=== PATIENT | male | born 1940 | race Caucasian/White ===

== ENCOUNTER 2018-03-24 10:31 | Emergency (ER) | payer MEDICARE ==
[~2018-03-24] VITALS: Ht 172.7 cm; Wt 77.3 kg
[~2018-03-24 10:31] MED LIST: ALTACE5 MG PO; ARICEPT10 MG PO; ASCORBIC ACID500 MG PO; ATIVAN0.5 MG PO; DEPAKENE250 MG PO; GEODON20 MG PO; KLONOPIN0.5 MG PO; MEGACE40 MG PO; MELATONIN 3 MG1 TAB PO; MULTIPLE VITAMI1 TA1 PO; NAMENDA10 MG PO; PRAVACHOL80 MG PO; TRAZODONE HCL50 MG PO; ZOLOFT50 MG PO; ZYPREXA2.5 MG PO
[2018-03-24 10:36] VITALS: Ht 172.7 cm; Wt 77.3 kg
[2018-03-24 12:18] LABS: BASOPHILS 0.4 % (0-2); EOSINOPHILS 1.1 % (0-7); HEMATOCRIT 38.1 % (42.0-54.0); HEMOGLOBIN 12.8 g/dL (13.5-17.5); IMMATURE GRANULOCYTES 0.5 % (0-5); LYMPHOCYTES 11.6 % (15-50); MCH 29.3 pg (26.0-34.0); MCHC 33.6 g/dL (31.0-37.0); MCV 87.2 fL (80.0-100.0); MEAN PLATELET VOLUME 10.2 fL (7.4-10.4); MONOCYTES 11.2 % (2-11); NEUTROPHILS 75.2 % (40-80); RBC 4.37 10x6/uL (4.20-6.10); RDW 14.9 % (11.5-14.5); WBC 7.6 10x3/uL (4.8-10.8)
[2018-03-24 12:20] LABS: PLATELET COUNT 185 10x3/uL (130-400)
[2018-03-24 12:32] LABS: ALBUMIN 3.3 g/dL (3.4-5.0); ANION GAP 12.5 mmol/L (8-16); BILIRUBIN - TOTAL 0.4 mg/dL (0.2-1.3); CALCIUM 8.4 mg/dL (8.5-10.1); CARBON DIOXIDE 24.1 mmol/L (21.0-32.0); CREATININE - SERUM 1.2 mg/dL (0.6-1.3); POTASSIUM - SERUM 5.6 mmol/L (3.5-5.1); PROTEIN - SERUM 6.8 g/dL (6.4-8.2)
[2018-03-24 13:42] VITALS: BP 148/078
[2018-05-24 15:31] VITALS: Ht 172.7 cm; Wt 77.3 kg
== END 2018-03-24 13:42 | disposition home or self-care (01) ==
LOC: D.ER 10:31
PROVIDERS: Family Medicine
DX: S00.03XA Contusion of scalp, initial encounter (principal); W05.0XXA Fall from non-moving wheelchair, initial encounter; Y93.89 Activity, other specified; Y92.129 Unspecified place in nursing home as the place of occurrence of the external cause; G30.9 Alzheimer's disease, unspecified; F02.81 Dementia in other diseases classified elsewhere, unspecified severity, with behavioral disturbance; I10 Essential (primary) hypertension

== ENCOUNTER 2018-05-22 04:44 | Inpatient (IN) | payer MEDICARE, OTHER ==
[~2018-05-22] VITALS: Ht 172.7 cm; Wt 99.8 kg
--- NOTE | ~2018-05-22 | EC ---
PATIENT:CORNELIA WEST DATE OF SERVICE: 05/22/18 SEX: M MEDICAL RECORD: [id number] DATE OF : 42 LOCATION:[facility] AGE OF PATIENT: 77 ADMISSION DATE: 05/22/18 REFERRING PHYSICIAN: INTERPRETING PHYSICIAN: HEATH NGUYEN MD ECHOCARDIOGRAM REPORT ECHO CHARGES 4 ECHO COMPLETE Date: 05/22 CLINICAL DIAGNOSIS: CHF ECHOCARDIOGRAPHIC MEASUREMENTS (adult normal given) AC root (d.<3.7cm) 3.2 cm LV Septum d (<1.2 cm> 1.8 cm Valve Excursion 1.6 cm LV Septum (systole) 2.0 cm Left Atria (s.<4.0cm> 3.0 cm LVPW d(<1.2cm) 1.7 cm RV (d.<2.3cm) 3.9 cm LVPW (sytole) 2.0 cm LV diastole(<5.6CM) 3.7 cm MV E-F(>70mm/sec) cm LV systole 2.0 cm LVOT Diameter 2.0 cm MV exc.(>10mm) 2.0 cm Est.ejection fraction (50-75%) % DOPPLER: LVIT cm/sec A 119 cm/sec E 71.0 cm/sec LA cm/sec RVSP 52 mmHg LVOT 121 cm/sec AOP1/2T m/s Asc. Ao 156 cm/sec RVOT 70 cm/sec RA cm/sec PA 103 cm/sec AV Gradient Peak 9.73 mmHg AV Mean 5.61 mmHg AV Area 2.5 cm MV Gradient Peak 10.32mmHg MV Mean 3.82 mmHg MV Area cm COMMENTS: Open End Spinning Operator: 2 LISA MENENDEZ Rag Washer: 3 Dr. Luque TAPE# PACS Pericardial Effusion N DATE OF SERVICE: Adequate 2D, color-flow, spectral Doppler, and M-mode. LVH present. LV internal dimensions are normal. Wall motion is normal. EF is greater than or equal to 55%. Aortic valve sclerosis without stenosis by Doppler interrogation. Left atrium is normal at 3.0 cm. Mitral valve shows no prolapse. Trace MR. Right-sided chamber size grossly normal. Trace TR. TRANSINT:[id number] Voice Confirmation ID: [id number] DOCUMENT ID: [id number] ECHOCARDIOGRAM REPORT [id number] CORNELIA WEST HEATH NGUYEN MD at 1254 CC: [id number] DICTATION DATE: 05/23/18 0839 FOIL WRAPPER: 05/23/18 1137 DIS IN 05/27/18 [id number] [place] [address]
[2018-05-22 05:30] LABS: BASOPHILS 0.1 % (0-2); EOSINOPHILS 0.2 % (0-7); HEMATOCRIT 45.2 % (42.0-54.0); HEMOGLOBIN 14.9 g/dL (13.5-17.5); IMMATURE GRANULOCYTES 0.5 % (0-5); LYMPHOCYTES 6.1 % (15-50); MCH 30.3 pg (26.0-34.0); MCV 92.1 fL (80.0-100.0); MONOCYTES 6.6 % (2-11); NEUTROPHILS 86.5 % (40-80); PLATELET COUNT 203 10x3/uL (130-400); RBC 4.91 10x6/uL (4.20-6.10); RDW 13.1 % (11.5-14.5); WBC 12.7 10x3/uL (4.8-10.8)
[2018-05-22 05:36] LABS: APPEARANCE CLEAR (CLEAR); COLOR YELLOW (YELLOW)
[2018-05-22 05:37] LABS: BILIRUBIN NEGATIVE (NEGATIVE); GLUCOSE NEGATIVE (NEGATIVE); KETONE NEGATIVE (NEGATIVE); NITRITE NEGATIVE (NEGATIVE); PROTEIN NEGATIVE (NEGATIVE); UROBILINOGEN NORMAL (NORMAL)
[2018-05-22 05:54] LABS: ALKALINE PHOSPHATASE 78 U/L (46-116); ALT (SGPT) 22 U/L (10-68); BILIRUBIN - TOTAL 0.35 mg/dL (0.2-1.3); CALC OSMOLALITY 290 mosm/kg (275-300); CALCIUM 8.2 mg/dL (8.5-10.1); CARBON DIOXIDE 25.7 mmol/L (21.0-32.0); CHLORIDE - SERUM 108 mmol/L (98-107); CREATININE - SERUM 1.4 mg/dL (0.6-1.3); GLUCOSE 147 mg/dL (74-106); POTASSIUM - SERUM 3.7 mmol/L (3.5-5.1); PROTEIN - SERUM 6.5 g/dL (6.4-8.2); SODIUM 144 mmol/L (136-145); UREA NITROGEN 15 mg/dL (7-18); eGFR NON AFRICAN AMERICAN 52 mL/min (90-120)
[2018-05-22 05:57] LABS: CKMB 1.6 U/L (0.0-3.6); CREATINE KINASE 155 UL (21-232); MAGNESIUM - SERUM 2.3 mg/dL (1.8-2.4); TROPONIN-I < 0.017 ng/mL (0.000-0.060)
[2018-05-22 06:44] VITALS: BP 107/74
[2018-05-22 07:16] VITALS: BP 116/75
[2018-05-22] MEDS ORDERED: DEPAKOTE SPRIN125 MG PO ×2 (09:05→09:06)
[2018-05-22 09:40] VITALS: BP 106/74; BMI 33.5
[2018-05-22 12:37] VITALS: BP 137/87
[2018-05-22 16:07] VITALS: BP 132/85
[2018-05-22 20:30] VITALS: BP 129/80
[2018-05-23 00:30] VITALS: BP 116/79
[2018-05-23 04:30] VITALS: BP 126/70
[2018-05-23 06:38] LABS: BASOPHILS 0.1 % (0-2); EOSINOPHILS 0.1 % (0-7); HEMATOCRIT 40.9 % (42.0-54.0); HEMOGLOBIN 13.5 g/dL (13.5-17.5); IMMATURE GRANULOCYTES 0.3 % (0-5); MCH 29.9 pg (26.0-34.0); MCV 90.7 fL (80.0-100.0); MEAN PLATELET VOLUME 11.5 fL (7.4-10.4); MONOCYTES 8.9 % (2-11); NEUTROPHILS 86.6 % (40-80); RBC 4.51 10x6/uL (4.20-6.10); RDW 13.7 % (11.5-14.5); WBC 15.2 10x3/uL (4.8-10.8)
[2018-05-23 06:53] LABS: PLATELET COUNT 145 10x3/uL (130-400)
[2018-05-23 07:11] LABS: ALBUMIN 2.9 g/dL (3.4-5.0); ANION GAP 12.3 mmol/L (8-16); BILIRUBIN - TOTAL 0.64 mg/dL (0.2-1.3); CALCIUM 8.2 mg/dL (8.5-10.1); CARBON DIOXIDE 28.6 mmol/L (21.0-32.0); CHOL - HDL RATIO 2.9 ratio (2.3-4.9); LDL-HDL RATIO 1.6 ratio (1.5-3.5); MAGNESIUM - SERUM 1.9 mg/dL (1.8-2.4); POTASSIUM - SERUM 3.9 mmol/L (3.5-5.1); PROTEIN - SERUM 5.7 g/dL (6.4-8.2); THYROID STIMULATING HORMONE 3.27 uIU/mL (0.36-3.74)
[2018-05-23 07:14] LABS: CREATININE - SERUM 1.8 mg/dL (0.6-1.3)
[2018-05-23 08:13] VITALS: BP 128/79
[2018-05-23 09:08] LABS: PHENYTOIN (DILANTIN) 8.2 ug/mL (10.0-20.0); VALPROIC ACID (DEPAKOTE) 15.5 ug/mL (50.0-100.0)
[2018-05-23 14:00] VITALS: BP 150/84
[2018-05-23 16:25] VITALS: BP 140/87
[2018-05-23 20:44] VITALS: BP 134/83
[2018-05-24 00:24] VITALS: BP 139/81
[2018-05-24 04:58] VITALS: BP 154/90
[2018-05-24 07:21] LABS: BASOPHILS 0.2 % (0-2); EOSINOPHILS 0.9 % (0-7); HEMATOCRIT 36.8 % (42.0-54.0); HEMOGLOBIN 11.8 g/dL (13.5-17.5); IMMATURE GRANULOCYTES 0.2 % (0-5); LYMPHOCYTES 4.3 % (15-50); MCH 29.4 pg (26.0-34.0); MCHC 32.1 g/dL (31.0-37.0); MCV 91.8 fL (80.0-100.0); MEAN PLATELET VOLUME 11.4 fL (7.4-10.4); MONOCYTES 10.3 % (2-11); NEUTROPHILS 84.1 % (40-80); RBC 4.01 10x6/uL (4.20-6.10); RDW 13.6 % (11.5-14.5); WBC 12.3 10x3/uL (4.8-10.8)
[2018-05-24 07:30] LABS: PLATELET COUNT 107 10x3/uL (130-400)
[2018-05-24 08:05] LABS: ANION GAP 10.8 mmol/L (8-16); CALCIUM 7.8 mg/dL (8.5-10.1); CREATININE - SERUM 1.5 mg/dL (0.6-1.3); MAGNESIUM - SERUM 2.1 mg/dL (1.8-2.4); PHOSPHOROUS 3.2 mg/dL (2.5-4.9); POTASSIUM - SERUM 3.8 mmol/L (3.5-5.1)
[2018-05-24 08:39] VITALS: BP 125/69
[2018-05-24 08:42] LABS: PHENYTOIN (DILANTIN) 7.1 ug/mL (10.0-20.0)
[2018-05-24 13:02] VITALS: BP 142/78
[2018-05-24 15:31] VITALS: Ht 172.7 cm; Wt 99.8 kg
[2018-05-24 16:37] VITALS: BP 135/76
[2018-05-24 23:19] VITALS: BP 141/72
[2018-05-25 03:40] VITALS: BP 154/74
[2018-05-25 06:17] LABS: BASOPHILS 0.6 % (0-2); EOSINOPHILS 3.6 % (0-7); HEMATOCRIT 34.5 % (42.0-54.0); HEMOGLOBIN 11.4 g/dL (13.5-17.5); IMMATURE GRANULOCYTES 0.2 % (0-5); LYMPHOCYTES 5.1 % (15-50); MCH 30.2 pg (26.0-34.0); MCV 91.5 fL (80.0-100.0); MEAN PLATELET VOLUME 10.9 fL (7.4-10.4); MONOCYTES 9.6 % (2-11); NEUTROPHILS 80.9 % (40-80); PLATELET COUNT 107 10x3/uL (130-400); RBC 3.77 10x6/uL (4.20-6.10); RDW 13.7 % (11.5-14.5)
[2018-05-25 07:00] LABS: ANION GAP 14.7 mmol/L (8-16); CALCIUM 7.9 mg/dL (8.5-10.1); CARBON DIOXIDE 25.9 mmol/L (21.0-32.0); CREATININE - SERUM 1.3 mg/dL (0.6-1.3); POTASSIUM - SERUM 3.6 mmol/L (3.5-5.1)
[2018-05-25 08:04] VITALS: BP 133/78
[2018-05-25 13:24] VITALS: BP 147/87
[2018-05-25 16:40] VITALS: BP 128/78
[2018-05-25 20:32] VITALS: BP 118/70
[2018-05-26 00:38] VITALS: BP 124/74
[2018-05-26 04:49] VITALS: BP 142/75
[2018-05-26 06:48] LABS: BASOPHILS 0.6 % (0-2); EOSINOPHILS 5.5 % (0-7); HEMATOCRIT 33.4 % (42.0-54.0); HEMOGLOBIN 10.5 g/dL (13.5-17.5); IMMATURE GRANULOCYTES 0.3 % (0-5); LYMPHOCYTES 5.8 % (15-50); MCH 29.4 pg (26.0-34.0); MCHC 31.4 g/dL (31.0-37.0); MEAN PLATELET VOLUME 11.1 fL (7.4-10.4); MONOCYTES 9.8 % (2-11); PLATELET COUNT 121 10x3/uL (130-400); RBC 3.57 10x6/uL (4.20-6.10); RDW 13.8 % (11.5-14.5); WBC 7.8 10x3/uL (4.8-10.8)
[2018-05-26 06:58] LABS: MCV 93.6 fL (80.0-100.0)
[2018-05-26 07:11] LABS: ANION GAP 13.2 mmol/L (8-16); CARBON DIOXIDE 28.5 mmol/L (21.0-32.0); CREATININE - SERUM 1.2 mg/dL (0.6-1.3); POTASSIUM - SERUM 3.7 mmol/L (3.5-5.1)
[2018-05-26 09:14] VITALS: BP 131/62
[2018-05-26 12:19] VITALS: BP 125/59
[2018-05-26 16:17] VITALS: BP 140/59
[2018-05-26 21:29] VITALS: BP 133/77
[2018-05-27 00:14] VITALS: BP 134/74
[2018-05-27 04:36] VITALS: BP 185/96
[2018-05-27 08:54] VITALS: BP 151/103
[2018-05-27] MEDS ORDERED: DEPAKOTE SPRIN125 MG PO (10:22)
[2018-05-27] MEDS ORDERED: ATIVAN2 MG/ML IM (10:25)
[2018-05-27] MEDS ORDERED: MORPHINE S10 MG/5 ML PO (10:27)
== END 2018-05-27 16:40 | DRG 100 ==
LOC: D.ER 04:44 → D.MS 06:37 → D.EDHOLD 06:37 → D.MS 07:38
PROVIDERS: Emergency Medicine; Family Medicine
DX: R56.9 Unspecified convulsions (principal); R40.2343 Coma scale, best motor response, flexion withdrawal, at hospital admission; R40.2113 Coma scale, eyes open, never, at hospital admission; R40.2213 Coma scale, best verbal response, none, at hospital admission; R53.2 Functional quadriplegia; J18.9 Pneumonia, unspecified organism; I50.33 Acute on chronic diastolic (congestive) heart failure; F02.81 Dementia in other diseases classified elsewhere, unspecified severity, with behavioral disturbance; N17.9 Acute kidney failure, unspecified; Z66 Do not resuscitate; I11.0 Hypertensive heart disease with heart failure; G30.9 Alzheimer's disease, unspecified; F41.9 Anxiety disorder, unspecified; E78.5 Hyperlipidemia, unspecified; R13.12 Dysphagia, oropharyngeal phase; R32 Unspecified urinary incontinence